=== PATIENT | female | born 1955 | race Caucasian/White ===

== ENCOUNTER 2020-11-17 11:30 | Day surgery (SDC) | payer MEDICARE ==
[2020-11-17] MEDS ORDERED: Xylocaine 1% Vial 30 ML PF IJ ONE (11:31)
[2020-11-17] MEDS ORDERED: Depo-Medrol 40 MG/ML IM ONE (11:31)
[2020-11-17] MEDS ORDERED: BUPIVACAINE 0.5% VIAL IJ ONE (11:31)
--- NOTE | 2020-11-17 14:16 | XRAY ---
Indication: Left shoulder injections. Intraoperative fluoroscopy provided for 6 seconds. Single digital spot image submitted for interpretation demonstrates needle tip projecting over the left glenohumeral joint superiorly. Small amount of contrast injected for needle tip placement. Correlate with intraoperative findings/report.
--- NOTE | 2020-11-17 14:20 | XRAY ---
6 seconds of fluoroscopy was used in surgery for a left intra-articular shoulder injection.
== END 2020-11-17 13:33 | disposition home or self-care (01) ==
LOC: SDC-PAIN 11:30
PROVIDERS: ATTEND Psychiatry & Neurology Pain Medicine
DX: M19.012 Primary osteoarthritis, left shoulder (principal); F41.9 Anxiety disorder, unspecified; F32.9 Major depressive disorder, single episode, unspecified; J44.9 Chronic obstructive pulmonary disease, unspecified; I10 Essential (primary) hypertension; I25.10 Atherosclerotic heart disease of native coronary artery without angina pectoris; I49.9 Cardiac arrhythmia, unspecified; E78.5 Hyperlipidemia, unspecified
CPT/HCPCS: 20610; 73030; 77002; J1030; J2001; Q9966

== ENCOUNTER 2021-08-15 17:26 | Emergency (ER) | payer MEDICARE ==
[2021-08-15] MEDS ORDERED: XYLOCAINE 1% HCL 20 ML MDV IJ ONE (17:27)
--- NOTE | 2021-08-15 17:29 | ERPHSYRPT ---
- History of Present Illness Time Seen by Provider: 08/15/21 17:29 Source: patient Physician History: This is a 66-year-old white female patient of Dr. Walter Vargas presents with dysuria since last night. Patient has a history of elevated cholesterol, gastroesophageal reflux disease and hypertension. Symptoms have been persistent since last evening. Timing/Duration: yesterday, intermittent, worse Severity: moderate Associated Symptoms: denies symptoms Allergies/Adverse Reactions: No Known Drug Allergies Allergy (Unverified 08/15/21 17:48) Home Medications: Chlorthalidone 25 mg PO DAILY 08/15/21 [History] Famotidine 20 mg [Pepcid 20 MG] 20 mg PO DAILY 08/15/21 [History] Hydrocodone/Acetaminophen [Hydrocodone-Acetamin 10-325 mg] 1 ea TID 08/15/21 [History] Omeprazole 1 ea DAILY 08/15/21 [History] Rosuvastatin Calcium 5 mg PO DAILY 08/15/21 [History] Travel Risk - International Travel Have you traveled outside of the country in past 3 weeks: No - Coronavirus Screening Are you exhibiting any of the following symptoms?: No Close contact with a COVID-19 positive Pt in past 14-21 Days: No - Review of Systems Constitutional: No Symptoms Eyes: No Symptoms Ears, Nose, & Throat: No Symptoms Respiratory: No Symptoms Cardiac: No Symptoms Abdominal/Gastrointestinal: No Symptoms Genitourinary Symptoms: Dysuria, Frequency Musculoskeletal: No Symptoms Skin: No Symptoms Neurological: No Symptoms Psychological: No Symptoms Endocrine: No Symptoms Hematologic/Lymphatic: No Symptoms Immunological/Allergic: No Symptoms All Other Systems: Reviewed and Negative - Past Medical History Pertinent Past Medical History: Yes - Past Surgical History Past Surgical History: Yes - Nursing Vital Signs Nursing Vital Signs: Initial Vital Signs Temperature 97.2 F 08/15/21 17:41 Pulse Rate 68 08/15/21 17:41 Respiratory Rate 18 08/15/21 17:41 Blood Pressure 113/85 08/15/21 17:41 O2 Sat by Pulse Oximetry 93 L 08/15/21 17:41 Pain Scale Pain Intensity 8 - Physical Exam General Appearance: no apparent distress, alert, anxiety Eye Exam: PERRL/EOMI, eyes nml inspection Ears, Nose, Throat Exam: normal ENT inspection, moist mucous membranes Neck Exam: normal inspection, non-tender, supple, full range of motion Respiratory Exam: normal breath sounds, lungs clear, airway intact, No chest te nderness, No respiratory distress Cardiovascular Exam: regular rate/rhythm, normal heart sounds, normal peripheral pulses Gastrointestinal/Abdomen Exam: soft, normal bowel sounds, No tenderness Pelvic Exam: not done Rectal Exam: not done Back Exam: normal inspection, normal range of motion, No CVA tenderness Extremity Exam: normal inspection, normal range of motion, pelvis stable Neurologic Exam: alert, oriented x 3, cooperative, internal 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 agent II-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 nml as tested, normal mood/affect, nml cerebellar function, nml station & gait, sensation nml Skin Exam: normal color, warm, dry Lymphatic Exam: No adenopathy SpO2 Interpretation: borderline oxygenation O2 Delivery: Room Air - Course Nursing assessment & vital signs reviewed: Yes Ordered Tests: Active Orders 24 hr Category Date Time Status CULTURE,URINE Stat Lab 08/15/21 17:43 Received UA W/RFX UR CULTURE Stat Lab 08/15/21 17:43 Completed Medication Summary Generic Name Dose Route Start Last Admin Trade Name Freq PRN Reason Stop Dose Admin Phenazopyridine HCl 200 mg 08/15/21 18:21 Phenazopyridine Hcl 200 Mg Tablet PO 08/15/21 18:22 STAT ONE Discontinued Medications Generic Name Dose Route Start Last Admin Trade Name Freq PRN Reason Stop Dose Admin Ceftriaxone Sodium 1,000 mg 08/15/21 18:20 Ceftriaxone Sodium 1000 Mg Inj Vial IM 08/15/21 18:21 STAT ONE Lab/Rad Data: Laboratory Results 08/15/21 Range/Units 17:43 Urine Color YELLOW (YELLOW) Urine Appearance SLIGHTLY CLOUDY (CLEAR) Urine pH 5.0 (5-6) Ur Specific [place] 1.019 (1.005-1.025) Urine Protein NEGATIVE (Negative) Urine Ketones NEGATIVE (NEGATIVE) Urine Blood MODERATE (0-5) [place]/ul Urine Nitrite NEGATIVE (NEGATIVE) Urine Bilirubin NEGATIVE (NEGATIVE) Urine Urobilinogen NEGATIVE (0-1) mg/dL Ur Leukocyte Esterase MODERATE (NEGATIVE) Urine WBC (Auto) >100 (0-5) /HPF Urine RBC (Auto) 16-25 (0-2) /HPF U Epithel Cells (Auto) RARE (FEW) /HPF Urine Bacteria (Auto) FEW (NEGATIVE) /HPF Urine Mucus (Auto) SLIGHT (NEGATIVE) /HPF Urine Culture Reflexed YES (NO) Urine Glucose NEGATIVE (NEGATIVE) mg/dL - Progress Progress: unchanged Counseled pt/family regarding: lab results, diagnosis, need for follow-up - Departure Departure Disposition: Home Clinical Impression: UTI (urinary tract infection) Condition: Stable Critical Care Time: No Referrals: GIN VARGAS [Primary Care Provider] - Follow up/PCP as directed Additional Instructions: Drink plenty of fluids. Take your medication as prescribed. Follow-up with your primary care physician for further management. Prescriptions: Ciprofloxacin [Cipro 500 MG] 500 mg PO BID #14 tablet Phenazopyridine HCl 200 mg [Pyridium 200 mg] 200 mg PO TID #6 tablet
[2021-08-15 18:02] LABS: Appearance SLIGHTLY CLOUDY (CLEAR); Bacteria FEW /HPF (NEGATIVE); Bilirubin NEGATIVE (NEGATIVE); Blood MODERATE Ery/ul (0-5); Epithelial Cells RARE /HPF (FEW); Glucose NEGATIVE (NEGATIVE); Ketones NEGATIVE (NEGATIVE); Leukocyte Esterase MODERATE (NEGATIVE); Mucus SLIGHT /HPF (NEGATIVE); Nitrite NEGATIVE (NEGATIVE); Protein,Urine Dip NEGATIVE (Negative); Specific Gravity 1.019 (1.005-1.025); Urobilinogen NEGATIVE mg/dL (0-1); WBC >100 /HPF (0-5)
[2021-08-15] MEDS ORDERED: Rocephin 1000 MG INJ IM ONE (18:20)
[2021-08-15] MEDS ORDERED: PYRIDIUM 200 MG PO ONE (18:21)
[2021-08-15] MEDS ORDERED: PYRIDIUM 200 MG ONE (18:27)
[2021-08-15] MEDS ORDERED: Rocephin 1000 MG INJ ONE (18:27)
[2021-08-15 18:42] VITALS: BP 114/69; O2SAT 98
[2021-08-15 18:53] VITALS: PULSE 78
== END 2021-08-15 18:54 | disposition home or self-care (01) ==
LOC: ED 17:26
DX: N39.0 Urinary tract infection, site not specified (principal); E78.5 Hyperlipidemia, unspecified; K21.9 Gastro-esophageal reflux disease without esophagitis; I10 Essential (primary) hypertension; Z79.891 Long term (current) use of opiate analgesic; Z79.899 Other long term (current) drug therapy
CPT/HCPCS: 81001; 87086; 96372; 99284; J0696; A9270-GY

== ENCOUNTER 2021-11-12 15:40 | Emergency (ER) | payer MEDICARE ==
[2021-11-12 16:00] VITALS: BP 123/78; O2SAT 98
[2021-11-12] MEDS ORDERED: MORPHINE SULFATE 4 MG INJ IM ONE (16:44)
[2021-11-12] MEDS ORDERED: MORPHINE SULFATE 4 MG INJ ONE (16:51)
[2021-11-12 17:05] VITALS: PULSE 91
[2021-11-12 17:15] LABS: Appearance CLOUDY (CLEAR); Bilirubin NEGATIVE (NEGATIVE); Glucose NEGATIVE (NEGATIVE); Ketones TRACE (NEGATIVE)
[2021-11-12 17:16] LABS: Dipstick done @ ? MAIN LAB; Nitrite POSITIVE (NEGATIVE); Protein,Urine Dip NEGATIVE (Negative); RBC MODERATE Ery/ul (0-5); Specific Gravity >=1.030 (1.005-1.025); Urobilinogen 0.2 mg/dL (0-1)
[2021-11-12 17:19] LABS: Bacteria RARE /HPF (NEGATIVE); Crystals Unidentified 25-50 /HPF (NEGATIVE); Epithelial Cells RARE /HPF (FEW); Mucus SLIGHT /HPF (NEGATIVE); WBC >100 /HPF (0-5)
[2021-11-12] MEDS ORDERED: KEFLEX 500 MG PO ONE (17:19)
[2021-11-12 17:20] LABS: Urine Cultured Indicated? YES
--- NOTE | 2021-11-12 17:27 | ERPHSYRPT ---
- History of Present Illness Time Seen by Provider: 11/12/21 15:56 Source: patient Exam Limitations: no limitations Patient Subjective Stated Complaint: pt c/o of pain during urination with just dribbling Triage Nursing Assessment: Pt brought to the ER by her son, vitals wnl, rates pain as 9/10, pain and pressure during urination, pulses normal, skin n/w/d Physician History: 66-year-old female with history of previous UTIs presented in the ER with increased urinary frequency burning and sense of incomplete voiding since yesterday with progressive worsening and suprapubic discomfort. No fever or chills reported. Denies any flank pain. Does report having similar symptoms in the past. Timing/Duration: yesterday, gradual onset, worse Onset Location: urethral Pain Radiation: suprapubic, urethral Severity of Pain-Max: moderate Severity of Pain-Current: moderate Prior abdominal problems: UTI Sexual intercourse history: non-contributory Allergies/Adverse Reactions: No Known Drug Allergies Allergy (Verified 11/12/21 16:00) Home Medications: Chlorthalidone 25 mg PO DAILY 08/15/21 [History] Famotidine 20 mg [Pepcid 20 MG] 20 mg PO DAILY 08/15/21 [History] Omeprazole 1 ea DAILY 08/15/21 [History] Rosuvastatin Calcium 5 mg PO DAILY 08/15/21 [History] Fluticasone/Umeclidin/Vilanter [Trelegy Ellipta 100-62.5-25] 1 inh PO UD 11/12/21 [History] Hydrocodone/Acetaminophen [Hydrocodone-Acetamin 10-325 mg] 1 tab PO QID 11/12/21 [History] Hx Tetanus, Diphtheria Vaccination/Date Given: No Hx Influenza Vaccination/Date Given: Yes Hx Pneumococcal Vaccination/Date Given: No Travel Risk - International Travel Have you traveled outside of the country in past 3 weeks: No - Coronavirus Screening Are you exhibiting any of the following symptoms?: No Close contact with a COVID-19 positive Pt in past 14-21 Days: No - Vaccine Status Have you recieved a Covid-19 vaccination: Yes 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: [employer] - Vaccination Dates Date of 2cond Vaccination (if applicable): 2020 - Review of Systems Constitutional: No Symptoms Eyes: No Symptoms Ears, Nose, & Throat: No Symptoms Respiratory: No Symptoms Cardiac: No Symptoms Abdominal/Gastrointestinal: Abdominal Pain Genitourinary Symptoms: Dysuria, Frequency Musculoskeletal: No Symptoms Neurological: No Symptoms Hematologic/Lymphatic: No Symptoms - Past Medical History Pertinent Past Medical History: Yes Cardiac History: High Cholesterol Respiratory History: COPD GI Medical History: GERD - Past Surgical History Past Surgical History: Yes Musculoskeletal: Orthopedic Surgery Female Surgical History: Lumpectomy Other Surgical History: neck and carpal tunnel - Social History Smoking Status: Former smoker Exposure to second hand smoke: No Drug Use: none Patient Lives Alone: No - Nursing Vital Signs Nursing Vital Signs: Initial Vital Signs Temperature 98.4 F 11/12/21 15:45 Pulse Rate 87 11/12/21 15:45 Blood Pressure 123/78 11/12/21 15:45 O2 Sat by Pulse Oximetry 98 11/12/21 15:45 Pain Scale Pain Intensity 9 - Physical Exam General Appearance: no apparent distress, alert Ears, Nose, Throat Exam: normal ENT inspection Neck Exam: normal inspection, supple, full range of motion Respiratory Exam: normal breath sounds, lungs clear Cardiovascular Exam: regular rate/rhythm, normal heart sounds Gastrointestinal/Abdomen Exam: soft, tenderness (Suprapubic tenderness.) Back Exam: normal inspection Extremity Exam: normal inspection, normal range of motion, pelvis stable Neurologic Exam: alert, oriented x 3, cooperative Skin Exam: normal color SpO2 Interpretation: normal SpO2: 98 O2 Delivery: Room Air Ordered Tests: Active Orders 24 hr Category Date Time Status CULTURE,URINE Stat Lab 11/12/21 16:58 Received UA W/RFX CULTURE Stat Lab 11/12/21 16:58 Results Medication Summary Discontinued Medications Generic Name Dose Route Start Last Admin Trade Name Meghan PRN Reason Stop Dose Admin Cephalexin HCl 500 mg 11/12/21 17:19 Cephalexin Mh500 Mg Capsule PO 11/12/21 17:20 STAT ONE Morphine Sulfate 4 mg 11/12/21 16:44 11/12/21 16:52 Morphine Sulfate 4 Mg/Ml Injection IM 11/12/21 16:45 4 mg STAT ONE Administration Morphine Sulfate Confirm 11/12/21 16:51 Morphine Sulfate 4 Mg/Ml Injection Administered 11/12/21 16:52 Dose 4 mg .ROUTE .STK-MED ONE Lab/Rad Data: Laboratory Results 11/12/21 Range/Units 16:58 Urinalys Dipstick Clnc MAIN LAB Urine Color YELLOW (YELLOW) Urine Appearance CLOUDY (CLEAR) Urine pH 5.0 (5-6) Ur Specific [place] >=1.030 (1.005-1.025) POC Urine Protein Conf NEGATIVE (Negative) Urine Ketones TRACE (NEGATIVE) Urine Nitrite POSITIVE (NEGATIVE) Urine Bilirubin NEGATIVE (NEGATIVE) Urine Urobilinogen 0.2 (0-1) mg/dL Urine Leukocytes MODERATE (NEGATIVE) Urine WBC (Auto) >100 (0-5) /HPF Urine RBC (Auto) 16-25 (0-2) /HPF U Hyaline Cast (Auto) 3-5 (0-2) /LPF U Epithel Cells (Auto) RARE (FEW) /HPF Urine Bacteria (Auto) RARE (NEGATIVE) /HPF Urine RBC MODERATE (0-5) [place]/ul Unidentified Crystals 25-50 (NEGATIVE) /HPF Other Casts (Auto) NEGATIVE (NEGATIVE) /LPF Urine Mucus (Auto) SLIGHT (NEGATIVE) /HPF Ur Culture Indicated? YES Urine Glucose NEGATIVE (NEGATIVE) mg/dL - Progress Progress: improved, re-examined Air Movement: good Progress Note: 11/12/21 17:22 She is given pain medication for symptomatic relief. Does have UTI and started on Keflex. Blood Culture(s) Obtained: No Antibiotics given: Yes Counseled pt/family regarding: lab results, diagnosis - Departure Departure Disposition: Home Clinical Impression: UTI (urinary tract infection) Condition: Stable Critical Care Time: No Referrals: GIN VARGAS [Primary Care Provider] - Follow Up with PCP/3 days Instructions: Urinary Tract Infection, Adult (DC) Additional Instructions: Take Tylenol/ibuprofen as needed for pain. Drink plenty of fluids. Follow-up with primary care for reevaluation. Return to ER for intractable pain, fever chills, nausea vomiting etc. Prescriptions: Cephalexin Mh 500 mg [Keflex 500 mg] 500 mg PO TID #21 cap
[2021-11-12] MEDS ORDERED: KEFLEX 500 MG ONE (17:33)
== END 2021-11-12 17:52 | disposition home or self-care (01) ==
LOC: ED 15:40
DX: N39.0 Urinary tract infection, site not specified (principal); R35.0 Frequency of micturition; R30.0 Dysuria; R10.2 Pelvic and perineal pain; E78.5 Hyperlipidemia, unspecified; J44.9 Chronic obstructive pulmonary disease, unspecified; Z79.891 Long term (current) use of opiate analgesic; Z79.899 Other long term (current) drug therapy
CPT/HCPCS: 81015; 87077; 87086; 87186; 96372; 99284; J2270; A9270-GY

== ENCOUNTER 2023-11-07 18:16 | Emergency (ER) | payer MEDICARE ==
[2023-11-07] MEDS ORDERED: XYLOCAINE 1% HCL 20 ML MDV IJ ONE (18:17)
[2023-11-07 18:39] VITALS: RESP 20; TEMP 97.3
--- NOTE | 2023-11-07 19:19 | ERPHSYRPT ---
- History of Present Illness Time Seen by Provider: 11/07/23 18:45 Source: patient Exam Limitations: no limitations Patient Subjective Stated Complaint: C/O a skin discoloration to her right lower arm that is itching. Denies pain. Triage Nursing Assessment: Patient has a red/purple skin discoloration to her right lower arm. Not a rash. Bruise like in nature. Margins are irregular. Skin texture the same of the rest of patient's arm. Physician History: 68-year-old female presents emergency department for evaluation of what appears to be a cellulitis of her right arm. Patient states she was bitten by a "bug" while outdoors. Several days later she developed this pruritic rash that spread. The rash is warm to touch. No associated lymphangitis. No systemic manifestations no fever no nausea no vomiting no diarrhea no rash no diaphoresis. Symptoms are mild to moderate in intensity. No specific worsening improving factors. Patient otherwise feels well. She voices no other complaints or concerns at this time. Portions of this note were created with voice recognition technology. There may be grammatical, spelling, punctuation or sound alike errors Timing/Duration: day(s) (3 days ago) Severity: moderate Modifying Factors: Improves With: nothing Associated Symptoms: denies symptoms Allergies/Adverse Reactions: No Known Drug Allergies Allergy (Verified 11/07/23 18:31) Home Medications: Chlorthalidone 25 mg PO DAILY 08/15/21 [History] Famotidine 20 mg [Pepcid 20 MG] 20 mg PO DAILY 08/15/21 [History] Omeprazole 1 ea DAILY 08/15/21 [History] Rosuvastatin Calcium 5 mg PO DAILY 08/15/21 [History] Fluticasone/Umeclidin/Vilanter [Trelegy Ellipta 100-62.5-25] 1 inh PO UD 11/12/21 [History] Hydrocodone/Acetaminophen [Hydrocodone-Acetamin 10-325 mg] 1 tab PO QID 11/12/21 [History] Hx Tetanus, Diphtheria Vaccination/Date Given: No Hx Influenza Vaccination/Date Given: Yes Hx Pneumococcal Vaccination/Date Given: No Travel Risk - International Travel Have you traveled outside of the country in past 3 weeks: No - Emerging Infectious Disease Are you exhibiting symptoms associated with any current EIDs: No - Review of Systems Constitutional: No Symptoms, No Fever, No Chills Eyes: No Symptoms Ears, Nose, & Throat: No Symptoms Respiratory: No Symptoms, No Cough, No Dyspnea Cardiac: No Symptoms, No Chest Pain, No Edema, No Syncope Abdominal/Gastrointestinal: No Symptoms, No Abdominal Pain, No Nausea, No Vomiting, No Diarrhea Genitourinary Symptoms: No Symptoms, No Dysuria Musculoskeletal: No Symptoms, No Back Pain, No Neck Pain Skin: No Symptoms, No Rash Neurological: No Symptoms, No Dizziness, No Focal Weakness, No Sensory Changes Psychological: No Symptoms Endocrine: No Symptoms Hematologic/Lymphatic: No Symptoms Immunological/Allergic: No Symptoms All Other Systems: Reviewed and Negative - Past Medical History Pertinent Past Medical History: Yes Cardiac History: High Cholesterol, Hypertension Respiratory History: COPD GI Medical History: GERD - Past Surgical History Past Surgical History: Yes Musculoskeletal: Orthopedic Surgery Female Surgical History: Lumpectomy Other Surgical History: neck and carpal tunnel - Social History Smoking Status: Former smoker Exposure to second hand smoke: Yes Drug Use: none Patient Lives Alone: No - Nursing Vital Signs Nursing Vital Signs: Initial Vital Signs Temperature 97.3 F 11/07/23 18:32 Pulse Rate 70 11/07/23 18:32 Respiratory Rate 20 11/07/23 18:32 Blood Pressure 148/10 11/07/23 18:32 O2 Sat by Pulse Oximetry 98 11/07/23 18:32 Pain Scale Pain Intensity 0 - Physical Exam General Appearance: no apparent distress, alert Eye Exam: PERRL/EOMI, eyes nml inspection Ears, Nose, Throat Exam: normal ENT inspection, moist mucous membranes Neck Exam: normal inspection, full range of motion Respiratory Exam: normal breath sounds, lungs clear, airway intact, No respiratory distress Cardiovascular Exam: regular rate/rhythm, normal heart sounds, normal peripheral pulses Gastrointestinal/Abdomen Exam: soft, normal bowel sounds, No tenderness, No mass Back Exam: normal inspection, normal range of motion, No CVA tenderness, No vertebral tenderness Extremity Exam: normal inspection, normal range of motion, pelvis stable Neurologic Exam: alert, oriented x 3, cooperative, normal mood/affect, sensation nml, No motor deficits Skin Exam: normal color, warm, dry, No rash Lymphatic Exam: No adenopathy SpO2 Interpretation: normal SpO2: 98 O2 Delivery: Room Air - Course Nursing assessment & vital signs reviewed: Yes Ordered Tests: Medication Summary Discontinued Medications Generic Name Dose Route Start Last Admin Trade Name Meghan PRN Reason Stop Dose Admin Ceftriaxone Sodium 1,000 mg 11/07/23 19:18 11/07/23 19:26 Ceftriaxone Sodium 1000 Mg Inj Vial IM 11/07/23 19:19 1,000 mg STAT ONE Administration Ceftriaxone Sodium Confirm 11/07/23 19:22 Ceftriaxone Sodium 1000 Mg Inj Vial Administered 11/07/23 19:23 Dose 1,000 mg .ROUTE .STK-MED ONE Famotidine 20 mg 11/07/23 19:23 11/07/23 19:26 Famotidine 20 Mg Tablet PO 11/07/23 19:24 20 mg STAT ONE Administration Famotidine Confirm 11/07/23 19:25 Famotidine 20 Mg Tablet Administered 11/07/23 19:26 Dose 20 mg .ROUTE .STK-MED ONE - Progress Progress: improved Progress Note: 68-year-old female presents emergency department for evaluation of a pruritic area of discoloration that developed after a bug bite 3 days ago. Physical exam reveals a warm slightly raised area of cellulitis well-demarcated possible erysipelas. No systemic manifestations. No lymphangitis. The involved extremities neurovascular intact distally compartments are soft cap refill less than 2 seconds. Patient has no allergies. Patient received IM Rocephin in our ED. A prescription for Keflex forwarded to patient's pharmacy. Patient also received 20 mg famotidine p.o for itching. A prescription for famotidine forwarded to patient's pharmacy. No indication for further workup at this time. Will discharge home. Patient voices no other complaints or concerns at this time. Portions of this note were created with voice recognition technology. There may be grammatical, spelling, punctuation or sound alike errors Complexity problem addressed is moderate acute complicated. No critical care time. Complexity data reviewed and analyzed is none. Diagnosis made based on history and physical exam. No specialized testing ordered. Risk of complication and or risk of morbidity/mortality patient management is moderate. A prescription for Keflex and famotidine forwarded to patient's pharmacy. Vital stable. Time spent to discharge patient is approximately 20 minutes. Plan of care established for shared decision making. No social determinants of health present impede follow-up. Portions of this note were created with voice recognition technology. There may be grammatical, spelling, punctuation or sound alike errors 11/07/23 19:26 11/07/23 19:28 Counseled pt/family regarding: diagnosis, need for follow-up - Departure Departure Disposition: Home Clinical Impression: Bug bite, Cellulitis Condition: Stable Critical Care Time: No Referrals: GIN VARGAS [Primary Care Provider] - Follow up/PCP as directed Additional Instructions: Discharge/Care Plan SANDI SAEED was seen on 11/07/23 in the Emergency Room. The patient was counseled regarding Diagnosis,Lab results, Imaging studies, need for follow up and when to return to the Emergency Room. Prescriptions given: Discharge Note I have spoken with the patient and/or caregivers. I have explained the patient's condition, diagnosis and treatment plan based on the information available to me at this time. I have answered the patient's and/or caregiver's questions and ad dressed any concerns. The patient and/or caregivers have as good understanding of the patient's diagnosis, condition and treatment plan as can be expected at this point. The vital signs have been stable. The patient's condition is stable and appropriate for discharge from the emergency department. The patient will pursue further outpatient evaluation with the primary care physician or other designated or consulting physician as outlined in the discharge instructions. The patient and/or caregivers are agreeable to this plan of care and follow-up instructions have been explained in detail. The patient and/or caregivers have received these instruction. The patient/and or caregivers are aware that any significant change in condition or worsening of symptoms should prompt an immediate return to this or the closest emergency department or call 911. Prescriptions: Cephalexin Mh 500 mg [Keflex 500 mg] 500 mg PO TID #21 cap Famotidine 20 mg [Pepcid 20 MG] 20 mg PO BID 7 Days #14 tablet
[2023-11-07] MEDS ORDERED: Rocephin 1000 MG INJ ONE (19:22)
[2023-11-07] MEDS ORDERED: Pepcid 20 MG ONE (19:25)
[2023-11-07] MEDS: Rocephin 1000 MG INJ IM ONE (19:26)
[2023-11-07] MEDS: Pepcid 20 MG PO ONE (19:26)
[2023-11-07 19:38] VITALS: BP 147/87; PULSE 84
[2023-11-07 20:08] VITALS: O2SAT 98
== END 2023-11-07 20:07 | disposition home or self-care (01) ==
LOC: ED 18:16
DX: S50.861A Insect bite (nonvenomous) of right forearm, initial encounter (principal); L03.113 Cellulitis of right upper limb; E78.5 Hyperlipidemia, unspecified; I10 Essential (primary) hypertension; Z79.899 Other long term (current) drug therapy
CPT/HCPCS: 96372; 99283; J0696; A9270-GY

== ENCOUNTER 2024-04-27 08:35 | Emergency (ER) | payer MEDICARE, OTHER ==
[2024-04-27 08:46] VITALS: RESP 18; TEMP 97.3
--- NOTE | 2024-04-27 08:54 | ERPHSYRPT ---
- History of Present Illness Time Seen by Provider: 04/27/24 08:53 Historian: patient Exam Limitations: no limitations Patient Subjective Stated Complaint: pt here for pain to right side of abd that started this morning, with some nausea Triage Nursing Assessment: pt arrived with family per wc, she is moaning out, anxious, resp easy, o2 at 3 l nc , abd soft, tender to touch, moves all ext well, no edema noted Physician History: The patient presents with abdominal and back pain. She is accompanied by a family member. She experiences abdominal and back pain, described as a pressure-like sensation in the kidney area. No burning sensation during urination is noted. She denies any history of kidney stones and still has her gallbladder. No fever is reported. She feels nauseous with a sensation of needing to vomit, although she has not vomited. She mentions having acid reflux, which exacerbates her nausea. Her last bowel movement was this morning, but she has a history of constipation, having been 'stopped up' for about six to seven weeks in the past. She is currently taking hydrocodone for pain, having taken half a tablet this morning, but reports that it is not alleviating her pain. Timing/Duration: today Activities at Onset: sleep Quality: sharpness, stabbing Abdominal Pain Onset Location: flank (right) Pain Radiation: RLQ Severity of Pain-Max: severe Severity of Pain-Current: severe Modifying Factors: Improves With: nothing. Worsens With: movement, palpation Associated Symptoms: back, loss of appetite, nausea, No chest pain, No diarrhea, No fever/chills, No vomiting Previous symptoms: no prior history Allergies/Adverse Reactions: No Known Drug Allergies Allergy (Verified 04/27/24 08:44) Home Medications: Chlorthalidone 25 mg PO DAILY 08/15/21 [History] Famotidine 20 mg [Pepcid 20 MG] 20 mg PO DAILY 08/15/21 [History] Omeprazole 1 ea DAILY 08/15/21 [History] Rosuvastatin Calcium 5 mg PO DAILY 08/15/21 [History] Fluticasone/Umeclidin/Vilanter [Trelegy Ellipta 100-62.5-25] 1 inh PO UD 11/12/21 [History] Hydrocodone/Acetaminophen [Hydrocodone-Acetamin 10-325 mg] 1 tab PO QID 11/12/21 [History] Hx Tetanus, Diphtheria Vaccination/Date Given: No Hx Influenza Vaccination/Date Given: Yes Hx Pneumococcal Vaccination/Date Given: Yes Immunizations Up to Date: Yes Travel Risk - International Travel Have you traveled outside of the country in past 3 weeks: No - Emerging Infectious Disease Are you exhibiting symptoms associated with any current EIDs: No - Review of Systems All Other Systems: Reviewed and Negative - Past Medical History Pertinent Past Medical History: Yes Cardiac History: High Cholesterol, Hypertension Respiratory History: COPD GI Medical History: GERD - Past Surgical History Past Surgical History: Yes Musculoskeletal: Orthopedic Surgery Female Surgical History: Lumpectomy Other Surgical History: neck and carpal tunnel - Social History Smoking Status: Former smoker Exposure to second hand smoke: Yes Drug Use: none Patient Lives Alone: No - Social Determinants of Health Will the patient participate in the screening: Declined to provide - Nursing Vital Signs Nursing Vital Signs: Initial Vital Signs Respiratory Rate 20 04/27/24 08:44 Blood Pressure 167/92 04/27/24 08:44 O2 Sat by Pulse Oximetry 94 L 04/27/24 08:44 Pain Scale Pain Intensity 8 - Physical Exam General Appearance: mild distress Eye Exam: eyes nml inspection Respiratory Exam: normal breath sounds, lungs clear, airway intact, No chest tenderness, No respiratory distress Cardiovascular Exam: regular rate/rhythm, normal heart sounds, capillary refill <2 sec Gastrointestinal/Abdomen Exam: soft, tenderness (R flank, RLQ), guarding, other (decreased BS), No distention, No rebound Back Exam: CVA tenderness (right) Extremity Exam: normal inspection, No swelling Neurologic Exam: alert, oriented x 3, cooperative Skin Exam: normal color, warm, dry, No rash SpO2 Interpretation: normal SpO2: 98 O2 Delivery: Room Air - Course Nursing assessment & vital signs reviewed: Yes EKG Interpreted by Me: RATE (82), Sinus Rhythm, NORMAL AXIS, NORMAL INTERVALS, NORMAL QRS, NORMAL ST-T - CT Exams Abdomen/Pelvis CT Interpretation: Other (right VUJ calculus 1.3x2.7 mm with signs of obstruction) Ordered Tests: Active Orders 24 hr Category Date Time Status EKG-ER Only STAT Care 04/27/24 08:57 Active IV Insertion STAT Care 04/27/24 08:57 Active NPO (ED) STAT Care 04/27/24 08:57 Active ABDOMEN AND PELVIS W/0 CONTRAS [CT] Stat Exams 04/27/24 09:30 Completed CBC W DIFF Stat Lab 04/27/24 08:57 Completed CMP Stat Lab 04/27/24 08:57 Completed LIPASE Stat Lab 04/27/24 08:57 Completed TROPONIN Q4H Lab 04/27/24 09:00 Completed TROPONIN Q4H Lab 04/27/24 13:00 Ordered TROPONIN Q4H Lab 04/27/24 17:00 Ordered UA W/RFX UR CULTURE Stat Lab 04/27/24 09:25 Completed Medication Summary Discontinued Medications Generic Name Dose Route Start Last Admin Trade Name Freq PRN Reason Stop Dose Admin Droperidol 1.25 mg 04/27/24 08:57 04/27/24 09:07 Droperidol 5 Mg/2 Ml Vial IV 04/27/24 08:58 1.25 mg STAT ONE Administration Droperidol Confirm 04/27/24 09:05 Droperidol 5 Mg/2 Ml Vial Administered 04/27/24 09:06 Dose 5 mg .ROUTE .STK-MED ONE Sodium Chloride 1,000 mls @ 999 mls/hr 04/27/24 08:57 04/27/24 10:10 Sodium Chloride 0.9% 1000 Ml IV 04/27/24 09:57 Infused .Q1H1M STA Infusion Sodium Chloride Confirm 04/27/24 09:05 Sodium Chloride 0.9% 1000 Ml Administered 04/27/24 09:06 Dose 1,000 mls @ ud .ROUTE .STK-MED ONE Morphine Sulfate 2 mg 04/27/24 09:59 04/27/24 10:05 Morphine Sulfate 2 Mg/Ml Inj IV 04/27/24 10:00 2 mg STAT ONE Administration Morphine Sulfate Confirm 04/27/24 10:03 Morphine Sulfate 2 Mg/Ml Inj Administered 04/27/24 10:04 Dose 2 mg .ROUTE .STK-MED ONE Lab/Rad Data: Laboratory Result Diagrams 04/27/24 08:57 04/27/24 08:57 Laboratory Results 04/27/24 04/27/24 04/27/24 Range/Units 09:25 09:00 08:57 WBC (3.98-10.04) x10^3/uL RBC (3.93-5.22) x10^6/uL Hgb (11.2-15.7) g/dL Hct (34.1-44.9) % MCV (79.4-94.8) fL MCH (25.6-32.2) pg MCHC (32.2-35.5) g/dL RDW (11.7-14.4) % Plt Count (182-369) x10^3/uL MPV (9.4-12.3) fL Gran % (34.0-71.1) % Immature Gran % (Auto) (0.001-0.429) % Nucleat RBC Rel Count (0.00-0.2) % Eos # (Auto) (0.04-0.36) x10^3/uL Immature Gran # (Auto) (0.001-0.031) x10^3u/L Absolute Lymphs (auto) (1.18-3.74) x10^3/uL Absolute Monos (auto) (0.24-0.86) x10^3/uL Absolute Nucleated RBC (0.00-0.012) x10^3u/L Lymphocytes % (19.3-51.7) % Monocytes % (4.7-12.5) % Eosinophils % (0.7-5.8) % Basophils % (0.1-1.2) % Absolute Granulocytes (1.56-6.13) x10^3/uL Basophils # (0.01-0.08) x10^3/uL Sodium 141 (135-145) mmol/L Potassium 3.9 (3.5-5.1) mmol/L Chloride 105 (98-107) mmol/L Carbon Dioxide 28 (22-30) mmol/L Anion Gap 11.5 (5-15) MEQ/L BUN 22 H (7-17) mg/dL Creatinine 0.83 (0.52-1.04) mg/dL Estimated GFR 77.2 ML/MIN Glucose 146 H (74-106) mg/dL Calcium 9.2 (8.4-10.2) mg/dL Total Bilirubin 0.50 (0.2-1.3) mg/dL AST 24 (14-36) U/L ALT 25 (0-35) U/L Alkaline Phosphatase 112 (38-126) U/L Troponin I < 0.012 (0.000-0.033) ng/mL Serum Total Protein 6.4 (6.3-8.2) g/dL Albumin 3.8 (3.5-5.0) g/dL Lipase 71 (23-300) U/L Urine Color Yellow (Yellow) Urine Appearance Cloudy A (Clear) Urine pH 8.5 A (4.6-8.0) Ur Specific Hitchcock 1.020 (1.005-1.030) Urine Protein Trace A (Negative) Urine Glucose (UA) Negative (Negative) mg/dL Urine Ketones Negative (Negative) Urine Blood Negative (Negative) Urine Nitrite Negative (Negative) Urine Bilirubin Negative (Negative) Urine Urobilinogen 0.2 (0.2) mg/dL Ur Leukocyte Esterase Negative (Negative) U Hyaline Cast (Auto) 3-5 A (0-2) /LPF Urine Microscopic RBC 0-2 (0-5) /HPF Urine Microscopic WBC 3-5 (0-5) /HPF Ur Epithelial Cells Few (None Seen) /HPF Urine Bacteria None Seen (None Seen) /HPF Urine Culture Reflexed NO (NO) 04/27/24 Range/Units 08:57 WBC 10.2 H (3.98-10.04) x10^3/uL RBC 4.24 (3.93-5.22) x10^6/uL Hgb 12.3 (11.2-15.7) g/dL Hct 37.7 (34.1-44.9) % MCV 88.9 (79.4-94.8) fL MCH 29.0 (25.6-32.2) pg MCHC 32.6 (32.2-35.5) g/dL RDW 12.8 (11.7-14.4) % Plt Count 308 (182-369) x10^3/uL MPV 9.7 (9.4-12.3) fL Gran % 84.5 H (34.0-71.1) % Immature Gran % (Auto) 0.3 (0.001-0.429) % Nucleat RBC Rel Count 0.0 (0.00-0.2) % Eos # (Auto) 0.05 (0.04-0.36) x10^3/uL Immature Gran # (Auto) 0.03 (0.001-0.031) x10^3u/L Absolute Lymphs (auto) 0.92 L (1.18-3.74) x10^3/uL Absolute Monos (auto) 0.53 (0.24-0.86) x10^3/uL Absolute Nucleated RBC 0.00 (0.00-0.012) x10^3u/L Lymphocytes % 9.0 L (19.3-51.7) % Monocytes % 5.2 (4.7-12.5) % Eosinophils % 0.5 L (0.7-5.8) % Basophils % 0.5 (0.1-1.2) % Absolute Granulocytes 8.64 H (1.56-6.13) x10^3/uL Basophils # 0.05 (0.01-0.08) x10^3/uL Sodium (135-145) mmol/L Potassium (3.5-5.1) mmol/L Chloride (98-107) mmol/L Carbon Dioxide (22-30) mmol/L Anion Gap (5-15) MEQ/L BUN (7-17) mg/dL Creatinine (0.52-1.04) mg/dL Estimated GFR ML/MIN Glucose (74-106) mg/dL Calcium (8.4-10.2) mg/dL Total Bilirubin (0.2-1.3) mg/dL AST (14-36) U/L ALT (0-35) U/L Alkaline Phosphatase (38-126) U/L Troponin I (0.000-0.033) ng/mL Serum Total Protein (6.3-8.2) g/dL Albumin (3.5-5.0) g/dL Lipase (23-300) U/L Urine Color (Yellow) Urine Appearance (Clear) Urine pH (4.6-8.0) Ur Specific Hitchcock (1.005-1.030) Urine Protein (Negative) Urine Glucose (UA) (Negative) mg/dL Urine Ketones (Negative) Urine Blood (Negative) Urine Nitrite (Negative) Urine Bilirubin (Negative) Urine Urobilinogen (0.2) mg/dL Ur Leukocyte Esterase (Negative) U Hyaline Cast (Auto) (0-2) /LPF Urine Microscopic RBC (0-5) /HPF Urine Microscopic WBC (0-5) /HPF Ur Epithelial Cells (None Seen) /HPF Urine Bacteria (None Seen) /HPF Urine Culture Reflexed (NO) - Progress Progress: improved Progress Note: Abdominal Pain Presents with lower abdominal and right-sided back pain, nausea, lighthe adedness, and acid reflux. Differential diagnosis includes UTI, nephrolithiasis, or gastrointestinal issues. Recent bowel movement with a history of constipation. Informed consent obtained for CT scan, discussing risks (radiation exposure), benefits (accurate diagnosis), and alternatives (ultrasound, observation). - Order CT scan to evaluate abdominal and kidney structures - Administer pain medication - Administer IV fluids 04/27/24 10:37 CT shows right VUJ obstructing stone measuring 1.3x2.7mm, swollen right kidney with surrounding perinephric fat stranding. DC home with Flomax, Toradol and c lose follow up with urology. Counseled pt/family regarding: lab results, diagnosis, need for follow-up, rad results Medical Desision Making - Diagnostic Testing Diagnostic test were ordered, analyzed, and reviewed by me: Yes Radiological Interpretation: Interpreted by me, Reviewed by me, Teleradiologist Report - Risk of complications The pt has a mod risk of morbidity or mortality based on: Need for prescription drug management - Departure Departure Disposition: Home Clinical Impression: Vesicoureteral obstruction, Right ureteral calculus, Abdominal pain Condition: Good Critical Care Time: No Referrals: GIN VARGAS [Primary Care Provider] - Follow up/PCP as directed KELVIN PATEL MD [NON-STAFF PHY W/O PRIVILEGES] - Follow up/PCP as directed Instructions: Kidney stones in adults Prescriptions: Tamsulosin HCl 0.4 mg [Flomax 0.4 MG] 0.4 mg PO DAILY 30 Days #30 cap Ketorolac Trometh 10 mg Tab [TORAdol 10 MG TABLET] 10 mg PO TID PRN 7 Days #21 tablet PRN Reason: Pain
[2024-04-27 09:05] LABS: Absolute Neutrophil Ct (ANC) 8.64 x10^3/uL (1.56-6.13); BASOPHIL % 0.5 % (0.1-1.2); Basophil (Absolute #) 0.05 x10^3/uL (0.01-0.08); Eosinophil % 0.5 % (0.7-5.8); Eosinophil (Absolute #) 0.05 x10^3/uL (0.04-0.36); Hematocrit 37.7 % (34.1-44.9); Hemoglobin 12.3 g/dL (11.2-15.7); IMMATURE GRAN # 0.03 x10^3u/L (0.001-0.031); IMMATURE GRAN % 0.3 % (0.001-0.429); Lymphocyte (Absolute #) 0.92 x10^3/uL (1.18-3.74); Mean Cell Volume 88.9 fL (79.4-94.8); Mean Corpuscular Hgb Concent. 32.6 g/dL (32.2-35.5); Mean Platelet Volume 9.7 fL (9.4-12.3); Monocyte (Absolute #) 0.53 x10^3/uL (0.24-0.86); Monocytes % 5.2 % (4.7-12.5); Neutrophil % 84.5 % (34.0-71.1); Platelet Count 308 x10^3/uL (182-369); Red Blood Count 4.24 x10^6/uL (3.93-5.22); Red Cell Distribution Width 12.8 % (11.7-14.4); White Blood Count 10.2 x10^3/uL (3.98-10.04)
[2024-04-27] MEDS ORDERED: Sodium Chloride 0.9% 1000 ML 1,000 ML ONE (09:05)
[2024-04-27] MEDS: Sodium Chloride 0.9% 1000 ML 1,000 ML IV STA (09:07)
[2024-04-27 09:17] LABS: ALBUMIN 3.8 g/dL (3.5-5.0); ANION GAP 11.5 MEQ/L (5-15); BILIRUBIN,TOTAL 0.5 mg/dL (0.2-1.3); Calcium 9.2 mg/dL (8.4-10.2); Creatinine 1 0.83 mg/dL (0.52-1.04); EST GLOMERULAR FILTRATION RATE 77.2 ML/MIN; Potassium 3.9 mmol/L (3.5-5.1); Total Protein 6.4 g/dL (6.3-8.2)
[2024-04-27 09:48] LABS: Appearance Cloudy (Clear); Bacteria None Seen /HPF (None Seen); Bilirubin Negative (Negative); Blood Negative (Negative); Epithelial Cells Few /HPF (None Seen); Glucose, Urine Negative (Negative); Ketones Negative (Negative); Leukocyte Esterase Negative (Negative); Nitrite Negative (Negative); Ph 8.5 (4.6-8.0); Protein,Urine Dip Trace (Negative); RBC 0-2 /HPF (0-5); Urobilinogen 0.2 mg/dL (0.2)
[2024-04-27] MEDS ORDERED: MORPHINE SULFATE 2 MG INJ ONE (10:03)
[2024-04-27] MEDS: MORPHINE SULFATE 2 MG INJ IV ONE (10:05)
[2024-04-27 10:12] VITALS: PULSE 94
--- NOTE | 2024-04-27 10:33 | XRAY ---
CLINICAL HISTORY: abd pain COMPARISON: None TECHNIQUE: Non-contrast CT of the abdomen and pelvis was performed, with the following protocol: axial images, and reconstructed coronal and sagittal images. One of the following dose reduction techniques was utilized for this exam: Automated exposure control, adjustment of the mA and/or kV according to patient size, and use of iterative reconstruction. FINDINGS: A small sliding hiatus hernia is noted The scanned lung bases show bilateral basal atelectatic segment Abdomen: Liver: Normal in size, shape, and density. No focal lesions, cysts, or masses were identified. Gallbladder and Biliary System: The gallbladder is normal in size and shape. No wall thickening, pericholecystic fluid, or gallstones were identified. Pancreas: Pancreatic head, body, and tail are visualized and appear normal in size and density. No pancreatic masses or calcifications were noted. Spleen: Normal in size, shape, and density. No splenic lesions or masses were identified. Kidneys and Adrenal Glands: Mild right-sided hydroureteronephrosis down to hyperdense obstructing stone seen at the right vesicoureteric junction measuring 1.3x 2.7 mm displaying 136 Hounsfield units Swollen right kidney with surrounding perinephric fat stranding suggesting obstructive nephropathy The left kidney is normal in size, shape, and position. Cortical thickness is within normal limits. No renal calculi or hydronephrosis. Adrenal glands are unremarkable. Appendix: The appendix is normal in size without colette appendiceal fat stranding, and without an appendicolith. No evidence of appendiceal abscess or perforation. Pelvis: Urinary Bladder: Normal in contour and wall thickness. No intraluminal lesions. Uterus: Normal in size and contour. No masses or abnormal thickening. Ovaries: Not well visualized but no gross abnormalities noted. Vagina: Normal in contour and wall thickness. Cervix: No evidence of mass or abnormal thickening. Peritoneal and Retroperitoneal Structures: No free fluid or abnormal fluid collections were identified within the abdomen or pelvis. No lymphadenopathy was noted. Bowel: The visualized bowel loops are normal in caliber and appearance. No evidence of bowel obstruction or wall thickening. Bones and Soft Tissues: Pelvic bones and soft tissues are unremarkable. No fractures or abnormal masses were identified. Spine degenerative changes are noted IMPRESSION: 1. A small sliding hiatus hernia is noted 2. right vesicoureteric junction obstructing stone measuring 1.3x 2.7 mm displaying 136 Hounsfield units 3. Swollen right kidney with surrounding perinephric fat stranding suggesting obstructive nephropathy. [facility] ER was called at 09:23 AM [employer] 04/27/2024. Dr. Sandhu was informed regarding the presence of Significant Medical Findings. Electronically Signed by: Florencia Quintero MD. (04/27/2024 10:29:35 EST)
[2024-04-27 11:01] VITALS: BP 142/69; O2SAT 100
== END 2024-04-27 11:06 | disposition home or self-care (01) ==
LOC: ED 08:35
DX: N13.5 Crossing vessel and stricture of ureter without hydronephrosis (principal); N20.1 Calculus of ureter; R10.9 Unspecified abdominal pain; M54.9 Dorsalgia, unspecified; R11.0 Nausea; E78.5 Hyperlipidemia, unspecified; I10 Essential (primary) hypertension; Z79.891 Long term (current) use of opiate analgesic; Z79.899 Other long term (current) drug therapy
CPT/HCPCS: 36000; 36415; 74176; 80053; 81001; 83690; 84484; 85025; 93005; 96360; 96361; 96374; 96375; 99285; J2270